=== PATIENT | male | born 1990 | race Caucasian/White ===

== ENCOUNTER 2018-04-18 13:36 | Emergency (ER) | payer OTHER ==
[2018-04-18 13:40] VITALS: PULSE 89; RESP 18
--- NOTE | 2018-04-18 15:02 | ED ---
General Adult HPI - General Source: patient, RN notes reviewed Mode of arrival: ambulatory Limitations: no limitations <Kenneth Grewal - Last Filed: 04/18/18 14:56> <Josias Moore - Last Filed: 04/18/18 21:37> - General Chief complaint: Alcohol Stated complaint: Confusion Time Seen by Provider: 04/18/18 14:01 - History of Present Illness Initial comments: Patient is a 28-year-old male presenting to the emergency room today with a ball intoxication. Patient does admit that he was drinking this morning. He states that he drank approximately 8 beers. He states he began drinking around 7 AM. He states he called his boss to tell him that he would be late for work. Patient's boss didn't notice that he appear to be intoxicated and brought him here to the emergency room. Patient states that he is a daily drinker. States she's not had any withdrawal seizures. Patient denies any thoughts of hurting himself or others. States no specific bruising that he was drinking this morning. States he does not want be here and would like to leave. States there is no one come pick him up. Patient denies any recent fever, chills, shortness of breath, chest pain, back pain, abdominal pain, nausea or vomiting, numbness or tingling, headaches or visual changes, or any other complaints. ( Kenneth Grewal) - Related Data Home Medications Medication Instructions Recorded Confirmed No Known Home Medications 04/18/18 04/18/18 Allergies Allergy/AdvReac Type Severity Reaction Status Date / Time No Known Allergies Allergy Verified 04/18/18 13:59 Review of Systems ROS Other: All systems not noted in ROS Statement are negative. <Kenneth Grewal - Last Filed: 04/18/18 14:56> ROS Other: All systems not noted in ROS Statement are negative. <Josias Moore - Last Filed: 04/18/18 21:37> ROS Statement: Those systems with pertinent positive or pertinent negative responses have been documented in the HPI. Past Medical History Past Medical History: No Reported History History of Any Multi-Drug Resistant Organisms: None Reported Past Surgical History: No Surgical Hx Reported Past Psychological History: No Psychological Hx Reported Smoking Status: Never smoker Past Alcohol Use History: Abuse, Daily, Heavy Past Drug Use History: None Reported <Kenneth Grewal - Last Filed: 04/18/18 14:56> General Exam Limitations: no limitations <Kenneth Grewal - Last Filed: 04/18/18 14:56> <Josias Moore - Last Filed: 04/18/18 21:37> - General Exam Comments Initial Comments: General: The patient is awake and alert, appears intoxicated. Eye: Pupils are equal, round and reactive to light, extra-ocular movements are intact. No nystagmus. There is normal conjunctiva bilaterally. No signs of icterus. Ears, nose, mouth and throat: There are moist mucous membranes and no oral lesions. Neck: The neck is supple, there is no tenderness or JVD. Cardiovascular: There is a regular rate and rhythm. No murmur, rub or gallop is appreciated. Respiratory: Lungs are clear to auscultation, respirations are non-labored, breath sounds are equal. No wheezes, stridor, rales, or rhonchi. Musculoskeletal: Normal ROM, no tenderness. Strength 5/5. Sensation intact. Pulses equal bilaterally 2+. Neurological: A&O x 3. CN II-XII intact, There are no obvious motor or sensory deficits. Coordination appears grossly intact. Speech is normal. Skin: Skin is warm and dry and no rashes or lesions are noted. Psychiatric: Cooperative (Kenneth Grewal) Vital Signs 04/18/18 13:38 Temperature 97.4 F L Pulse Rate 89 Respiratory 18 Rate Blood Pressure 141/92 O2 Sat by Pulse 100 Oximetry Procedures - Restraint - Face to Face Restraint Occurrence 1 Patient's Immediate Situation: Endangers self safety, Endangers others' safety, Endangers staff safety Patient's Reaction to the Intervention: Uncooperative, Angry Patient's Medical & Behavioral Condition: Awake, Alert, Agitated Face to Face Eval of Restraint Date: 04/18/18 Face to Face Eval of Restraint Time: 14:46 <Kenneth Grewal - Last Filed: 04/18/18 14:56> Medical Decision Making <Kenneth Grewal - Last Filed: 04/18/18 14:56> <Josias Moore - Last Filed: 04/18/18 21:37> - Medical Decision Making Patient is awake alert oriented 30 distress is able ably without difficulty he is medically clear for discharge. He is clinically not intoxicated at this time. (Josias Moore) Disposition <Kenneth Grewal - Last Filed: 04/18/18 14:56> Is patient prescribed a controlled substance at d/c from ED?: No <Josias Moore - Last Filed: 04/18/18 21:37> Clinical Impression: Alcoholic intoxication Disposition: HOME SELF-CARE Condition: Good Instructions: Alcohol Intoxication (ED) Referrals: None,Stated [Primary Care Provider] - 1-2 days
[2018-04-18 21:51] VITALS: BP 139/96; TEMP 97.9
== END 2018-04-18 21:48 | disposition home or self-care (01) ==
LOC: EC 13:36
DX: F10.129 Alcohol abuse with intoxication, unspecified (principal)
CPT/HCPCS: 82075; 99284

== ENCOUNTER 2018-04-28 23:36 | Observation (INO) | payer OTHER ==
[2018-04-29] MEDS ORDERED: SODIUM CHLORIDE 0.9% 1,000 ML IV STA (00:47)
[2018-04-29] MEDS ORDERED: SODIUM CHLORIDE 0.9% 1,000 ML IV ONE (00:47)
[2018-04-29] MEDS ORDERED: NALOXONE 0.4 MG/ML 1 ML VIAL IV PRN (00:48)
[2018-04-29] MEDS ORDERED: LORazepam 2 MG/ML INJ IV PRN ×3 (00:55)
[2018-04-29] MEDS ORDERED: THIAMINE 100 MG/ML 2 ML VIAL IM STA (00:55)
--- NOTE | 2018-04-29 01:17 | ED ---
Alcohol HPI - General Chief Complaint: Alcohol Stated Complaint: ETOH Time Seen by Provider: 04/28/18 23:53 Source: patient Mode of arrival: ambulatory Limitations: altered mental status (Appears intoxicated) - History of Present Illness Initial Comments: Patient to the ER for being too intoxicated. He admits to drinking too much. Complains of vomiting. Not able to give much other history due to intoxication. He does deny having fall or head injury. 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 ROS Other: All systems not noted in ROS Statement are negative. Eyes: Denies: vision change Respiratory: Denies: cough, dyspnea Cardiovascular: Denies: chest pain Gastrointestinal: Reports: nausea, vomiting. Denies: abdominal pain Musculoskeletal: Denies: back pain Neurological: Denies: headache Psychiatric: Denies: suicidal thoughts Past Medical History Past Medical History: No Reported History History of Any Multi-Drug Resistant Organisms: None Reported Past Surgical History: No Surgical Hx Reported Past Psychological History: No Psychological Hx Reported Smoking Status: Never smoker Past Alcohol Use History: Abuse, Daily, Heavy Past Drug Use History: None Reported General Exam Limitations: no limitations General appearance: alert, in no apparent distress, appears intoxicated Head exam: Present: atraumatic, normocephalic, normal inspection Eye exam: Present: normal appearance, PERRL, EOMI, nystagmus. Absent: scleral icterus, conjunctival injection Neck exam: Present: normal inspection, full ROM. Absent: tenderness Respiratory exam: Present: normal lung sounds bilaterally. Absent: respiratory distress, wheezes, rales, rhonchi, stridor, chest wall tenderness Cardiovascular Exam: Present: regular rate, normal rhythm, normal heart sounds. Absent: systolic murmur, diastolic murmur, rubs, gallop GI/Abdominal exam: Present: soft. Absent: distended, tenderness, guarding, rebound, organomegaly, mass Extremities exam: Present: normal inspection Neurological exam: Present: alert, CN II-XII intact, other (Mild ataxia. Mild dysarthria.). Absent: motor sensory deficit Psychiatric exam: Absent: homicidal ideation, suicidal ideation Skin exam: Present: warm, dry, intact, normal color. Absent: rash Course Vital Signs 04/28/18 04/29/18 04/29/18 23:46 01:04 01:55 Temperature 98.3 F 97.8 F Pulse Rate 102 H 87 Respiratory 18 21 Rate Blood Pressure 152/100 133/79 O2 Sat by Pulse 96 97 Oximetry Medical Decision Making - Lab Data Result diagrams: 04/29/18 00:26 04/29/18 00:26 Lab Results 04/29/18 04/29/18 Range/Units 00:26 00:26 WBC 7.3 (3.8-10.6) k/uL RBC 5.15 (4.30-5.90) m/uL Hgb 16.0 (13.0-17.5) gm/dL Hct 45.3 (39.0-53.0) % MCV 88.0 (80.0-100.0) fL MCH 31.1 (25.0-35.0) pg MCHC 35.3 (31.0-37.0) g/dL RDW 12.8 (11.5-15.5) % Plt Count 264 (150-450) k/uL Neutrophils % 60 % Lymphocytes % 30 % Monocytes % 5 % Eosinophils % 3 % Basophils % 1 % Neutrophils # 4.4 (1.3-7.7) k/uL Lymphocytes # 2.2 (1.0-4.8) k/uL Monocytes # 0.4 (0-1.0) k/uL Eosinophils # 0.2 (0-0.7) k/uL Basophils # 0.1 (0-0.2) k/uL Sodium 141 (137-145) mmol/L Potassium 3.7 (3.5-5.1) mmol/L Chloride 106 (98-107) mmol/L Carbon Dioxide 22 (22-30) mmol/L Anion Gap 13 mmol/L BUN 12 (9-20) mg/dL Creatinine 0.96 (0.66-1.25) mg/dL Est GFR (CKD-EPI)AfAm >90 (>60 ml/min/1.73 sqM) Est GFR (CKD-EPI)NonAf >90 (>60 ml/min/1.73 sqM) Glucose 104 H (74-99) mg/dL Calcium 8.6 (8.4-10.2) mg/dL Total Bilirubin 0.3 (0.2-1.3) mg/dL AST 42 (17-59) U/L ALT 39 (21-72) U/L Alkaline Phosphatase 66 (38-126) U/L Total Protein 6.0 L (6.3-8.2) g/dL Albumin 3.9 (3.5-5.0) g/dL Disposition Clinical Impression: Alcoholic intoxication Disposition: ADMITTED IP TO THIS HOSP Condition: Fair
[2018-04-29 01:39] LABS: Basophils # (A) 0.1 k/uL (0-0.2); Basophils % (A) 1 %; Eosinophils # (A) 0.2 k/uL (0-0.7); Eosinophils % (A) 3 %; HCT 45.3 % (39.0-53.0); Lymphocytes # (A) 2.2 k/uL (1.0-4.8); Lymphocytes % (A) 30 %; MCH 31.1 pg (25.0-35.0); MCHC 35.3 g/dL (31.0-37.0); Monocytes # (A) 0.4 k/uL (0-1.0); Monocytes % (A) 5 %; Neutrophils # (A) 4.4 k/uL (1.3-7.7); Neutrophils % (A) 60 %; Platelet Count 264 k/uL (150-450); RBC 5.15 m/uL (4.30-5.90); RDW 12.8 % (11.5-15.5); WBC 7.3 k/uL (3.8-10.6)
[2018-04-29 01:56] LABS: ALT 39 U/L (21-72); AST 42 U/L (17-59); Albumin 3.9 g/dL (3.5-5.0); Alkaline Phosphatase 66 U/L (38-126); Anion Gap 13 mmol/L; Blood Urea Nitrogen 12 mg/dL (9-20); Calcium 8.6 mg/dL (8.4-10.2); Carbon Dioxide 22 mmol/L (22-30); Chloride 106 mmol/L (98-107); Glucose 104 mg/dL (74-99); Potassium 3.7 mmol/L (3.5-5.1); Sodium 141 mmol/L (137-145); Total Bilirubin 0.3 mg/dL (0.2-1.3)
[2018-04-29 02:15] VITALS: BMI 25.7
[2018-04-29 02:22] VITALS: RESP 18
[2018-04-29 08:16] VITALS: BP 106/53; PULSE 120; TEMP 97.7
--- NOTE | 2018-04-29 13:32 | P.HPIM ---
History of Present Illness 78-year-old pleasant male is admitted for alcohol intoxication patient is awake able to ablate in the anguiano without any problem. Patient drinks about 15-16 beers a day rinse on daily basis patient is expected to have significant withdrawals and the drug rehabitation program may not be him able to handle the withdrawals because of which I requested him to stay in the hospital today and possibly tomorrow if needed if he has severe withdrawals but patient doesn't want to stay. Patient is depressed but not suicidal. Patient is willing to quit alcohol and will go to alcohol rehabilitation program today he said. I'm giving him Ativan on as-needed basis for alcohol withdrawal and counseled him he cannot take Ativan and alcohol together which he agreed not to do. Patient denied any nausea vomiting abdominal pain fever chills Review of Systems REVIEW OF SYSTEMS: CONSTITUTIONAL: No fever, no malaise, no fatigue. HEENT: No recent visual problems or hearing problems. Denied any sore throat. CARDIOVASCULAR: No chest pain, orthopnea, PND, no palpitations, no syncope. PULMONARY: No shortness of breath, no cough, no hemoptysis. GASTROINTESTINAL: No diarrhea, no nausea, no vomiting, no abdominal pain. Normoactive bowel sounds. NEUROLOGICAL: No headaches, no weakness, no numbness. HEMATOLOGICAL: Denies any bleeding or petechiae. GENITOURINARY: Denies any burning micturition, frequency, or urgency. MUSCULOSKELETAL/RHEUMATOLOGICAL: Denies any joint pain, swelling, or any muscle pain. ENDOCRINE: Denies any polyuria or polydipsia. The rest of the 14-point review of systems is negative. Past Medical History Past Medical History: No Reported History History of Any Multi-Drug Resistant Organisms: None Reported Past Surgical History: No Surgical Hx Reported Past Psychological History: No Psychological Hx Reported Smoking Status: Never smoker Past Alcohol Use History: Abuse, Daily, Heavy Past Drug Use History: None Reported Medications and Allergies Home Medications Medication Instructions Recorded Confirmed Type LORazepam [Ativan] 1 mg PO QID 3 Days #14 tab 04/29/18 Rx Thiamine [Vitamin B-1] 100 mg PO BID@1200,1700 #60 tab 04/29/18 Rx Allergies Allergy/AdvReac Type Severity Reaction Status Date / Time No Known Allergies Allergy Verified 04/29/18 07:48 Physical Exam Vitals: Vital Signs Temp Pulse Pulse Resp BP BP Pulse Ox 04/29/18 12:00 120 H 18 04/29/18 08:00 97.7 F 120 H 18 106/53 96 04/29/18 02:25 18 04/29/18 02:21 97.5 F L 82 18 150/83 97 04/29/18 01:55 97.8 F 04/29/18 01:04 87 21 133/79 97 04/28/18 23:46 98.3 F 102 H 18 152/100 96 Intake and Output 04/28/18 04/29/18 04/29/18 22:59 06:59 14:59 Other: Voiding Method Toilet Urinal # Voids 1 Weight 86.2 kg PHYSICAL EXAMINATION: GENERAL: The patient is alert and oriented x3, not in any acute distress. Well developed, well nourished. HEENT: Pupils are round and equally reacting to light. EOMI. No scleral icterus. No conjunctival pallor. Normocephalic, atraumatic. No pharyngeal erythema. No thyromegaly. CARDIOVASCULAR: S1 and S2 present. No murmurs, rubs, or gallops. PULMONARY: Chest is clear to auscultation, no wheezing or crackles. ABDOMEN: Soft, nontender, nondistended, normoactive bowel sounds. No palpable organomegaly. MUSCULOSKELETAL: No joint swelling or deformity. EXTREMITIES: No cyanosis, clubbing, or pedal edema. NEUROLOGICAL: Gross neurological examination did not reveal any focal deficits. SKIN: No rashes. Results CBC & Chem 7: 04/29/18 00:26 04/29/18 00:26 Labs: Abnormal Lab Results - Last 24 Hours (Table) 04/29/18 Range/Units 00:26 Glucose 104 H (74-99) mg/dL Total Protein 6.0 L (6.3-8.2) g/dL Assessment and Plan Plan: Alcohol intoxication -Alcohol ABUSE patient is expected to have withdrawalspatient is declining to stay, I cannot keep the patient here and patient is able to make decisions. -Depression antidepressants will not be beneficial until he quit alcohol.
[2018-04-29] MEDS ORDERED: THIAMINE 100 MG TAB PO SCH (17:00)
--- NOTE | 2018-04-30 11:39 | P.DS ---
Providers Date of admission: 04/29/18 00:48 Attending physician: Sharonda Ramos Primary care physician: Stated None Hospital Course: Please refer to HPI Patient Condition at Discharge: Fair Plan - Discharge Summary New Discharge Prescriptions: New LORazepam [Ativan] 1 mg PO QID 3 Days #14 tab Discharge Medication List LORazepam [Ativan] 1 mg PO QID 3 Days #14 tab 04/29/18 [Rx] Follow up Appointment(s)/Referral(s): Carlos Matute MD [STAFF PHYSICIAN] - 1 Week None,Stated [Primary Care Provider] - 1-2 days Discharge Disposition: HOME SELF-CARE
== END 2018-04-29 13:45 | disposition home or self-care (01) ==
LOC: EC 23:36 → 1SOBS 04-29 00:48
PROVIDERS: ADMIT Hospitalist; ATTEND Hospitalist
DX: F10.239 Alcohol dependence with withdrawal, unspecified (principal); F10.229 Alcohol dependence with intoxication, unspecified; F32.9 Major depressive disorder, single episode, unspecified
CPT/HCPCS: 96374; 82075; 96361; 96372; 99284; 36415; 80053; 85025; G0378; J2060; J3411

== ENCOUNTER 2018-04-29 20:03 | Observation (INO) | payer OTHER ==
[2018-04-29] MEDS ORDERED: SODIUM CHLORIDE 0.9% 1,000 ML IV STA (20:54)
[2018-04-29] MEDS ORDERED: THIAMINE 100 MG/ML 2 ML VIAL IM STA ×2 (21:26→22:06)
[2018-04-29] MEDS ORDERED: SODIUM CHLORIDE 0.9% 1,000 ML with MVI, ADULT NO.4 WITH VIT K 10 ML, THIAMINE 100 MG, F... IV ONE ×4 (21:26)
[2018-04-29 21:43] LABS: Amphetamine Screen,Urine Not Detected (NotDetected); Benzodiazepines Screen,Urine Not Detected (NotDetected); Cocaine Screen,Urine Not Detected (NotDetected); Opiate Screen,Urine Not Detected (NotDetected); Phencyclidine Screen,Urine Not Detected (NotDetected); Urn Cannabinoid Scrn Not Detected (NotDetected)
[2018-04-29 21:44] LABS: Barbiturate Screen,Urine Not Detected (NotDetected); Methadone Screen, Urine Not Detected (NotDetected); Oxycodone Screen, Urine Not Detected (NotDetected); Tricyclic Antidepressant,Urine Not Detected (NotDetected)
[2018-04-29 21:47] LABS: Basophils # (A) 0.1 k/uL (0-0.2); Basophils % (A) 1 %; Eosinophils # (A) 0.1 k/uL (0-0.7); Eosinophils % (A) 2 %; HCT 44.4 % (39.0-53.0); HGB 15.4 gm/dL (13.0-17.5); Lymphocytes # (A) 1.8 k/uL (1.0-4.8); Lymphocytes % (A) 31 %; MCH 30.5 pg (25.0-35.0); MCHC 34.7 g/dL (31.0-37.0); Mean Platelet Volume 6.3; Monocytes # (A) 0.4 k/uL (0-1.0); Monocytes % (A) 6 %; Neutrophils # (A) 3.5 k/uL (1.3-7.7); Neutrophils % (A) 58 %; Platelet Count 270 k/uL (150-450); RBC 5.05 m/uL (4.30-5.90); RDW 12.9 % (11.5-15.5)
[2018-04-29 21:56] LABS: ALT 33 U/L (21-72); AST 41 U/L (17-59); Alkaline Phosphatase 62 U/L (38-126); Anion Gap 11 mmol/L; Blood Urea Nitrogen 7 mg/dL (9-20); Calcium 8.7 mg/dL (8.4-10.2); Carbon Dioxide 25 mmol/L (22-30); Chloride 106 mmol/L (98-107); Glucose 90 mg/dL (74-99); Potassium 4.1 mmol/L (3.5-5.1); Sodium 142 mmol/L (137-145); Total Bilirubin 0.4 mg/dL (0.2-1.3); Total Protein 6.1 g/dL (6.3-8.2)
--- NOTE | 2018-04-29 22:05 | ED ---
Alcohol HPI - General Chief Complaint: Alcohol Stated Complaint: Intoxicated Source: patient, family Mode of arrival: ambulatory Limitations: no limitations - History of Present Illness Initial Comments: 28-year-old male past medical history of alcohol addiction presenting today for chief complaint of intoxication. Patient states he was discharged earlier today after being admitted for alcohol intoxication. Patient states he began experiencing delirium tremens and began drinking again, he states this alleviate symptoms. She states that he wants to become sober, however he is having difficulty with the withdrawal. Patient states he was scheduled to go to rehabilitation on Wednesday. Patient denies a suicidal or homicidal ideations. Patient denies any seizure activity. Patient denies any nausea, vomiting, abdominal pain, tremors. Upon arrival pt smells of alcohol. BAT 0.317. Remainder of ROS (-). - Related Data Previous Rx's Medication Instructions Recorded LORazepam [Ativan] 1 mg PO QID 3 Days #14 tab 04/29/18 Allergies Allergy/AdvReac Type Severity Reaction Status Date / Time No Known Allergies Allergy Verified 04/29/18 21:05 Review of Systems ROS Statement: Those systems with pertinent positive or pertinent negative responses have been documented in the HPI. ROS Other: All systems not noted in ROS Statement are negative. Constitutional: Denies: fever, chills Eyes: Denies: eye pain ENT: Denies: ear pain, throat pain Respiratory: Denies: cough, dyspnea, wheezes, hemoptysis, stridor Cardiovascular: Denies: chest pain, palpitations, dyspnea on exertion Endocrine: Denies: fatigue Gastrointestinal: Denies: abdominal pain, nausea, vomiting, diarrhea, constipation, hematemesis Genitourinary: Denies: urgency, dysuria, frequency, hematuria Musculoskeletal: Denies: as per HPI Skin: Denies: rash Neurological: Denies: headache, weakness, numbness, paresthesias, other Past Medical History Past Medical History: No Reported History History of Any Multi-Drug Resistant Organisms: None Reported Past Surgical History: No Surgical Hx Reported Past Psychological History: No Psychological Hx Reported Smoking Status: Never smoker Past Alcohol Use History: Abuse, Daily, Heavy Past Drug Use History: None Reported - Past Family History Mother History Unknown: Yes Family Medical History: No Reported History Father Family Medical History: Cancer Additional Family Medical History / Comment(s): skin cancer General Exam - General Exam Comments Initial Comments: General: The patient is awake and alert, in no distress, and does not appear acutely ill. Smells of alcohol Eye: Pupils are equal, round and reactive to light, extra-ocular movements are intact. No nystagmus. There is normal conjunctiva bilaterally. No signs of icterus. Ears, nose, mouth and throat: There are moist mucous membranes and no oral lesions. Neck: The neck is supple, there is no tenderness or JVD. Cardiovascular: There is a regular rate and rhythm. No murmur, rub or gallop is appreciated. Respiratory: Lungs are clear to auscultation, respirations are non-labored, breath sounds are equal. No wheezes, stridor, rales, or rhonchi. Gastrointestinal: Soft, non-distended, non-tender abdomen without masses or organomegaly noted. There is no rebound or guarding present. No CVA tenderness. Bowel sounds are unremarkable. Musculoskeletal: Normal ROM, no tenderness. Strength 5/5. Sensation intact. Radial pulses equal bilaterally 2+. Neurological: A&O x 3. CN II-XII intact, There are no obvious motor or sensory deficits. Coordination appears grossly intact. Speech is normal. No noted tremors. Skin: Skin is warm and dry and no rashes or lesions are noted. Psychiatric: Cooperative, appropriate mood & affect, normal judgment. Limitations: no limitations Course Vital Signs 04/29/18 04/29/18 20:24 22:48 Temperature 98.3 F Pulse Rate 111 H 94 Respiratory 20 16 Rate Blood Pressure 149/97 138/97 O2 Sat by Pulse 97 98 Oximetry Medical Decision Making - Medical Decision Making SUHAS 0.317 at this point given alcohol level we feel admission appropriate for patient for alcohol intoxication. CIWA protocols initiated. Pt given thiamine and banana bag. Blood glucose stable. No signs of DT at this time. Pt admitted to [facility], with social work consult. Case discussed with Dr. Borjas who agreed with impression and plan. Pt transferred to floor in stable condition. - Lab Data Result diagrams: 04/29/18 21:33 04/29/18 21:33 Lab Results 04/29/18 04/29/18 04/29/18 Range/Units 20:45 21:33 21:33 WBC 6.0 (3.8-10.6) k/uL RBC 5.05 (4.30-5.90) m/uL Hgb 15.4 (13.0-17.5) gm/dL Hct 44.4 (39.0-53.0) % MCV 88.0 (80.0-100.0) fL MCH 30.5 (25.0-35.0) pg MCHC 34.7 (31.0-37.0) g/dL RDW 12.9 (11.5-15.5) % Plt Count 270 (150-450) k/uL Neutrophils % 58 % Lymphocytes % 31 % Monocytes % 6 % Eosinophils % 2 % Basophils % 1 % Neutrophils # 3.5 (1.3-7.7) k/uL Lymphocytes # 1.8 (1.0-4.8) k/uL Monocytes # 0.4 (0-1.0) k/uL Eosinophils # 0.1 (0-0.7) k/uL Basophils # 0.1 (0-0.2) k/uL Sodium 142 (137-145) mmol/L Potassium 4.1 (3.5-5.1) mmol/L Chloride 106 (98-107) mmol/L Carbon Dioxide 25 (22-30) mmol/L Anion Gap 11 mmol/L BUN 7 L (9-20) mg/dL Creatinine 0.87 (0.66-1.25) mg/dL Est GFR (CKD-EPI)AfAm >90 (>60 ml/min/1.73 sqM) Est GFR (CKD-EPI)NonAf >90 (>60 ml/min/1.73 sqM) Glucose 90 (74-99) mg/dL Calcium 8.7 (8.4-10.2) mg/dL Total Bilirubin 0.4 (0.2-1.3) mg/dL AST 41 (17-59) U/L ALT 33 (21-72) U/L Alkaline Phosphatase 62 (38-126) U/L Total Protein 6.1 L (6.3-8.2) g/dL Albumin 4.0 (3.5-5.0) g/dL Urine Opiates Screen Not Detected (NotDetected) Ur Oxycodone Screen Not Detected (NotDetected) Urine Methadone Screen Not Detected (NotDetected) Ur Propoxyphene Screen Not Detected (NotDetected) Ur Barbiturates Screen Not Detected (NotDetected) U Tricyclic Antidepress Not Detected (NotDetected) Ur Phencyclidine Scrn Not Detected (NotDetected) Ur Amphetamines Screen Not Detected (NotDetected) U Methamphetamines Scrn Not Detected (NotDetected) U Benzodiazepines Scrn Not Detected (NotDetected) Urine Cocaine Screen Not Detected (NotDetected) U Marijuana (THC) Screen Not Detected (NotDetected) Disposition Clinical Impression: Alcohol intoxication Disposition: ADMITTED IP TO THIS HOSP Time of Disposition: 22:04 Decision to Admit Reason: Admit from EC Decision Date: 04/29/18 Decision Time: 22:04
[2018-04-29] MEDS ORDERED: LORazepam 2 MG/ML INJ IV PRN ×3 (22:06)
[2018-04-29] MEDS ORDERED: NALOXONE 0.4 MG/ML 1 ML VIAL IV PRN (22:08)
[2018-04-29 22:45] LABS: Glucose,Whole Blood 97 mg/dL (75-99)
[2018-04-30 06:02] LABS: Glucose,Whole Blood 92 mg/dL (75-99)
[2018-04-30 11:47] LABS: Glucose,Whole Blood 107 mg/dL (75-99)
--- NOTE | 2018-04-30 14:42 | P.HPIM ---
History of Present Illness 28-year-old admitted for alcohol intoxication again. Patient was discharged from my service yesterday patient declined to stay in the hospital. Patient is homeless and patient is scheduled to go to [place] tomorrow. Patient will be monitored tonight if his withdrawals are not significant patient will be discharged tomorrow to go to [place]. Patient nothing by mouth chills nausea vomiting abdominal pain. Patient reports about 15-16 beers a day expected to have withdrawals tonight. Review of Systems REVIEW OF SYSTEMS: CONSTITUTIONAL: No fever, no malaise, no fatigue. HEENT: No recent visual problems or hearing problems. Denied any sore throat. CARDIOVASCULAR: No chest pain, orthopnea, PND, no palpitations, no syncope. PULMONARY: No shortness of breath, no cough, no hemoptysis. GASTROINTESTINAL: No diarrhea, no nausea, no vomiting, no abdominal pain. Normoactive bowel sounds. NEUROLOGICAL: No headaches, no weakness, no numbness. HEMATOLOGICAL: Denies any bleeding or petechiae. GENITOURINARY: Denies any burning micturition, frequency, or urgency. MUSCULOSKELETAL/RHEUMATOLOGICAL: Denies any joint pain, swelling, or any muscle pain. ENDOCRINE: Denies any polyuria or polydipsia. The rest of the 14-point review of systems is negative. Past Medical History Past Medical History: No Reported History Additional Past Medical History / Comment(s): etoh History of Any Multi-Drug Resistant Organisms: None Reported Past Surgical History: No Surgical Hx Reported Past Psychological History: No Psychological Hx Reported Smoking Status: Never smoker Past Alcohol Use History: Abuse, Daily, Heavy Past Drug Use History: None Reported - Past Family History Mother History Unknown: Yes Family Medical History: No Reported History Father Family Medical History: Cancer Additional Family Medical History / Comment(s): skin cancer Medications and Allergies Home Medications Medication Instructions Recorded Confirmed Type LORazepam [Ativan] 1 mg PO QID 3 Days #14 tab 04/29/18 04/29/18 Rx Allergies Allergy/AdvReac Type Severity Reaction Status Date / Time No Known Allergies Allergy Verified 04/29/18 21:05 Physical Exam Vitals: Vital Signs Temp Pulse Pulse Resp BP BP Pulse Ox 04/30/18 06:01 97.7 F 69 16 144/78 97 04/29/18 23:19 98.3 F 90 18 152/92 97 04/29/18 22:48 94 16 138/97 98 04/29/18 20:24 98.3 F 111 H 20 149/97 97 Intake and Output 04/29/18 04/30/18 04/30/18 22:59 06:59 14:59 Intake Total 800 Balance 800 Intake: IV 800 Sodium Chloride 0.9% 1, 800 000 ml @ 100 mls/hr IV . Q10H7M ONE with Mvi, Adult No.4 with Vit K 10 ml with Thiamine 100 mg with Folic Acid 1 mg Rx#: [id number] Other: # Voids 1 Weight 86.183 kg 86.183 kg PHYSICAL EXAMINATION: GENERAL: The patient is alert and oriented x3, not in any acute distress. Well developed, well nourished. HEENT: Pupils are round and equally reacting to light. EOMI. No scleral icterus. No conjunctival pallor. Normocephalic, atraumatic. No pharyngeal erythema. No thyromegaly. CARDIOVASCULAR: S1 and S2 present. No murmurs, rubs, or gallops. PULMONARY: Chest is clear to auscultation, no wheezing or crackles. ABDOMEN: Soft, nontender, nondistended, normoactive bowel sounds. No palpable organomegaly. MUSCULOSKELETAL: No joint swelling or deformity. EXTREMITIES: No cyanosis, clubbing, or pedal edema. NEUROLOGICAL: Gross neurological examination did not reveal any focal deficits. SKIN: No rashes. Results CBC & Chem 7: 04/29/18 21:33 04/29/18 21:33 Labs: Abnormal Lab Results - Last 24 Hours (Table) 04/29/18 04/30/18 Range/Units 21:33 11:44 BUN 7 L (9-20) mg/dL POC Glucose (mg/dL) 107 H (75-99) mg/dL Total Protein 6.1 L (6.3-8.2) g/dL Thrombosis Risk Factor Assmnt - Choose All That Apply Any of the Below Risk Factors Present?: No Other Risk Factors: No Other congenital or acquired thrombophilia - If yes, enter type in comment: No Thrombosis Risk Factor Assessment Level: Very Low Risk Assessment and Plan Plan: Alcohol intoxication -Alcohol ABUSE -Alcohol withdrawal: Patient will be on CIWA protocol patient's requirement of Ativan is less often than 4 hours for tomorrow ration will be discharged patient wanted to be discharged by 7 AM tomorrow to go to [place]. -Depression once his stops drinking alcohol patient can be started on antidepressants
[2018-04-30 17:58] LABS: Glucose,Whole Blood 111 mg/dL (75-99)
[2018-05-01 00:27] VITALS: BP 136/85; PULSE 100; RESP 18; TEMP 97.3
[2018-05-01 00:31] LABS: Glucose,Whole Blood 94 mg/dL (75-99)
[2018-05-01 06:41] LABS: Glucose,Whole Blood 105 mg/dL (75-99)
--- NOTE | 2018-05-01 15:22 | P.DS ---
Providers Date of admission: 04/29/18 22:18 Attending physician: Sharonda Ramos Primary care physician: Stated None Hospital Course: 28-year-old admitted for alcohol intoxication overnight patient did not have any withdrawals patient was insisting on being discharged to go to alcohol rehabilitation program by 7:00 AM and was subsequently discharged. Patient did not have any alcohol withdrawal did not receive any Ativan overnight Plan - Discharge Summary New Discharge Prescriptions: No Action LORazepam [Ativan] 1 mg PO QID 3 Days #14 tab Discharge Medication List LORazepam [Ativan] 1 mg PO QID 3 Days #14 tab 04/29/18 [Rx] Follow up Appointment(s)/Referral(s): None,Stated [Primary Care Provider] - 1-2 days Patient Instructions/Handouts: Alcohol Intoxication (ED)
== END 2018-05-01 07:43 | disposition home or self-care (01) ==
LOC: EC 20:03 → 4MS4W 22:18
PROVIDERS: ADMIT Hospitalist; ATTEND Hospitalist
DX: F10.129 Alcohol abuse with intoxication, unspecified (principal); F32.9 Major depressive disorder, single episode, unspecified; Z79.899 Other long term (current) drug therapy; Z80.8 Family history of malignant neoplasm of other organs or systems; Y90.8 Blood alcohol level of 240 mg/100 ml or more; Z59.0 Homelessness
CPT/HCPCS: 96366 ×2; 82075; 96361; 96365; 96372; 99284; 36415; 80053; 85025; 80306; G0378 ×3; J3411